=== PATIENT | male | born 1970 | race Caucasian/White ===

== ENCOUNTER 2021-07-19 16:07 | Emergency (ER) | payer BC, OTHER ==
--- NOTE | 2021-07-19 16:49 | EDM.PDOC ---
ED HPI GENERAL MEDICAL PROBLEM - General Chief Complaint: Respiratory Problem Stated Complaint: COVID +/WORSENING SYMPTOMS Time Seen by Provider: 07/19/21 16:18 Source of Information: Reports: Patient, Old Records (Pt's records from [facility]), RN Notes Reviewed History Limitations: Reports: No Limitations - History of Present Illness INITIAL COMMENTS - FREE TEXT/NARRATIVE: Patient is a 51-year-old male who presents to the ER for evaluation of his worsening COVID-19 symptoms. States that he has been sick with Covid for roughly 10 or 11 days. He went to the walk-in clinic yesterday, and was reevaluated, they did a chest x-ray and some basic labs, and sent him home with a pulse oximeter. Notes that he has been watching his oxygen saturations at home, and he states that he has seen numbers as low as 85 to 88% at rest. However these were fleeting. O2 sats at time of triage, throughout his stay here so far have been 92 to 93%. Patient notes that he is having some resolution of feeling like he can catch his breath at this time. He is complaining however of increased sputum production, of a green/orange-colored sputum. He was given an inhaler as well, but states he was not taught how to use this, so he is not sure if he was using it correctly. He does think it does help when he takes it. He has been in contact with a significant other in his life, that is requesting the patient be placed on azithromycin, dexamethasone, and possibly a nebulizer. Patient's chest x-ray done at the [place] walk-in clinic demonstrated patchy infiltrates, and they were concerned of a possible pneumonitis. Patient notes he does not have a primary care provider, he does have some issues with elevated blood pressures. Chest Pain Score (Numeric/FACES): 6 - Related Data Allergies Allergy/AdvReac Type Severity Reaction Status Date / Time No Known Allergies Allergy Verified 07/19/21 16:41 Home Meds: Home Meds Albuterol Sulfate [Albuterol Sulfate HFA] 2 puff INH ASDIRECTED 07/19/21 [History] Azithromycin 250 mg PO ASDIRECTED #6 tablet 07/19/21 [Rx] Benzonatate [Tessalon Perle] 100 mg PO ASDIRECTED 07/19/21 [History] Levothyroxine [Synthroid] 100 mcg PO DAILY 07/19/21 [History] Pantoprazole Sodium [Protonix] 40 mg PO DAILY 07/19/21 [History] dexAMETHasone [Decadron] 6 mg PO DAILY 10 Days #10 tablet 07/19/21 [Rx] lisinopriL [Lisinopril] 40 mg PO DAILY 07/19/21 [History] Past Medical History Cardiovascular History: Reports: Hypertension - Infectious Disease History Infectious Disease History: Reports: Novel Coronavirus (06/2021) ED ROS GENERAL - Review of Systems Review Of Systems: Comprehensive ROS is negative, except as noted in HPI. ED EXAM, GENERAL - Physical Exam Exam: See Below Exam Limited By: No Limitations General Appearance: Alert, WD/WN, No Apparent Distress Eye Exam: Bilateral Eye: EOMI, Normal Inspection, PERRL Respiratory/Chest: No Respiratory Distress, Lungs Clear, Normal Breath Sounds, No Accessory Muscle Use, Chest Non-Tender Cardiovascular: Normal Peripheral Pulses, Regular Rate, Rhythm, No Edema Peripheral Pulses: 2+: Radial (L), Radial (R) Extremities: Normal Inspection, Normal Capillary Refill Neurological: Alert, Oriented, Normal Cognition, No Motor/Sensory Deficits Psychiatric: Normal Affect, Normal Mood Skin Exam: Warm, Dry, Intact, Normal Color, No Rash Course - Vital Signs Last Recorded V/S: Last Vital Signs Temp 96.7 F L 07/19/21 16:34 Pulse 90 07/19/21 16:34 Resp BP 158/89 H 07/19/21 16:34 Pulse Ox 92 L 07/19/21 16:34 - Orders/Labs/Meds Labs: Laboratory Tests 07/19/21 07/19/21 Range/Units 16:52 16:52 WBC 5.32 (4.23-9.07) K/mm3 RBC 4.94 (4.63-6.08) M/mm3 Hgb 15.0 (13.7-17.5) gm/dl Hct 44.6 (40.1-51.0) % MCV 90.3 (79.0-92.2) fl MCH 30.4 (25.7-32.2) pg MCHC 33.6 (32.2-35.5) g/dl RDW Std Deviation 42.9 (35.1-43.9) fL Plt Count 163 (163-337) K/mm3 MPV 9.3 L (9.4-12.3) fl Neut % (Auto) 71.5 H (34.0-67.9) % Lymph % (Auto) 17.7 L (21.8-53.1) % [place] % (Auto) 10.2 (5.3-12.2) % Eos % (Auto) 0 L (0.8-7.0) Baso % (Auto) 0.4 (0.1-1.2) % Neut # (Auto) 3.81 (1.78-5.38) K/mm3 Lymph # (Auto) 0.94 L (1.32-3.57) K/mm3 [place] # (Auto) 0.54 (0.30-0.82) K/mm3 Eos # (Auto) 0.00 L (0.04-0.54) K/mm3 Baso # (Auto) 0.02 (0.01-0.08) K/mm3 Manual Slide Review Sodium 135 L (136-145) mEq/L Potassium 4.1 (3.5-5.1) mEq/L Chloride 100 (98-107) mEq/L Carbon Dioxide 27 (21-32) mEq/L Anion Gap 12.1 (5-15) BUN 17 (7-18) mg/dL Creatinine 1.1 (0.7-1.3) mg/dL Est Cr Clr Drug Dosing 89.16 mL/min Estimated GFR (MDRD) > 60 (>60) mL/min BUN/Creatinine Ratio 15.5 (14-18) Glucose 125 H (70-99) mg/dL Calcium 7.9 L (8.5-10.1) mg/dL Total Bilirubin 0.9 (0.2-1.0) mg/dL AST 40 H (15-37) U/L ALT 48 (16-63) U/L Alkaline Phosphatase 53 (46-116) U/L C-Reactive Protein 10.2 H* (<1.0) mg/dL Total Protein 6.9 (6.4-8.2) g/dl Albumin 3.1 L (3.4-5.0) g/dl Globulin 3.8 gm/dL Albumin/Globulin Ratio 0.8 L (1-2) - Re-Assessments/Exams Free Text/Narrative Re-Assessment/Exam: 07/19/21 16:51 Patient presents to the ER for the ongoing COVID-19 symptoms, O2 sats have been okay while being in the ER, 90 to 93% with good plethysmography. For today's purposes we will repeat a chest x-ray, and some basic labs for ongoing management, we will have respiratory therapy come to teach the patient how to use an albuterol inhaler with a spacer to be given. Plan is to possibly send the patient home with a azithromycin, dexamethasone, for possiblesuperimposed infection over suspected Covid pneumonia, due to his change in color and sputum production. 07/19/21 17:44 Laboratory evaluation demonstrates no sign of acute changes. His CRP is el evated at 10.9, so the dexamethasone should help with this. We have been monitoring his O2 sats, and they have dipped to 88 or 89 at times, but then pop right back up to 93-94%. Departure - Departure Time of Disposition: 17:34 Disposition: Home, Self-Care 01 Condition: Good Clinical Impression: Pneumonia due to COVID-19 virus - Discharge Information *PRESCRIPTION DRUG MONITORING PROGRAM REVIEWED*: No *COPY OF PRESCRIPTION DRUG MONITORING REPORT IN PATIENT STU: No Prescriptions: Azithromycin 250 mg PO ASDIRECTED #6 tablet dexAMETHasone [Decadron] 6 mg PO DAILY 10 Days #10 tablet Instructions: COVID-19 Frequently Asked Questions, 10 Things You Can Do to Manage Your COVID-19 Symptoms at Home - [facility] (05/23/2020) Referrals: PCP,None [Primary Care Provider] - Forms: ED Department Discharge Care Plan Goals: You were seen in the ER today for ongoing and/or worsening respiratory symptoms. Your chest x-ray did show signs of Covid 19 pneumonia; which is a viral pneumonia, at this time. Your oxygen levels were acceptable at 92-93% on room air. Due to you reporting a change in sputum production, it is thought that there might be some overlying bacterial infection, you have been started on an antibiotic, azithromycin, please take as directed on the pack. You have also been started on oral dexamethasone for ongoing management. Please take as directed 1 tablet daily until gone. This medication was electronically sent to the [place] pharmacy located in the [facility] grocery store. Please try to increase your oral fluid intake, and eat multiple small meals throughout the day, to keep yourself healthy. You need to keep yourself nourished in order to fight off this disease. You can try a liquid diet like gatorade/powerade as well to get your electrolytes. You may take 500 mg Tylenol every hours 6 hours for pain/fever relief. Do not exceed 4000 mg Tylenol in a 24-hour time span. However, running a fever is your body's natural response to illness, and it allows the body to develop antibodies to disease, we are recommending trying to limit the use of Tylenol as much as possible to allow your body's natural immune response. You were given an inhaler from a different provider, and have also been provided a spacer, and have been shows how to use your inhaler with a spacer, please use this 2 puffs 4 times a day as needed for ongoing respiratory difficulty. Continue to monitor your oxygen levels at home, you should place the monitor on your finger, and sit in a calm, quiet position for a few minutes and then record the number that is on the screen. If this consistently below 90% on room air without movement, this would be cause for concern to come back to the hospital for further management of your COVID-19 disease. Please follow all guidance set forth from [facility], regarding isolation purposes for your disease process. Since your quarantine was technically over last night at midnight, I would recommend that you try to keep yourself in isolation until you're 24-hour fever free without any sort of Tylenol or ibuprofen. Sepsis Event Note (ED) - Focused Exam Vital Signs: Vital Signs Temp Pulse BP Pulse Ox 07/19/21 16:34 96.7 F L 90 158/89 H 92 L
--- NOTE | 2021-07-19 17:25 | CR ---
Chest: Frontal view of the chest was obtained. Comparison: No prior chest imaging is available. Heart size and mediastinum are normal. Patchy areas of increased density are seen along the periphery of both lungs. Bony structures are grossly intact. Impression: 1. Findings compatible with COVID pneumonia as described above. Diagnostic code #3
== END 2021-07-19 18:22 | disposition home or self-care (01) ==
LOC: JD.ED 16:07
DX: U07.1 COVID-19 (principal); J12.82 Pneumonia due to coronavirus disease 2019; I10 Essential (primary) hypertension; Z79.899 Other long term (current) drug therapy
CPT/HCPCS: 36415; 71045; 71045-26; 80053; 85025; 86140; 94640; 99283; 99284-25

== ENCOUNTER 2021-07-20 18:52 | Emergency (ER) | payer OTHER ==
[2021-07-20] MEDS ORDERED: Sodium Chloride 0.9% 10 ML Syringe FLUSH PRN (19:59)
--- NOTE | 2021-07-20 20:00 | EDM.PDOC ---
<RiversideMahi V - Last Filed: 07/20/21 22:39> ED HPI GENERAL MEDICAL PROBLEM - General Chief Complaint: Respiratory Problem Stated Complaint: COVID+ Time Seen by Provider: 07/20/21 19:38 Source of Information: Reports: Patient, Old Records, RN Notes Reviewed History Limitations: Reports: No Limitations - History of Present Illness INITIAL COMMENTS - FREE TEXT/NARRATIVE: Patient is a 51-year-old male who presents to the ER for his ongoing COVID-19 symptoms. Patient was evaluated in the ER by myself yesterday, and O2 sats were found to be within normal limits, he was sent home with a Z-Rito, for suspected overlying pneumonia due to his reported change in color of sputum. Dexamethasone for ongoing management of his COVID-19. He had a inhaler given to him from a previous provider, and states this has not been helping much. He has been checking his oxygen levels at home, and did note that his oxygen levels have been low today, around 85%. He states that they worsen with ambulation. He does have some dyspnea on exertion. He states that the fevers have stopped however. He was first diagnosed with Covid roughly 11 or 12 days now, and has been off quarantine, since yesterday at midnight. I did tell him however since he has still been feeling sick, and is coughing, that he should isolate until he is feeling better. Again patient returns to the ER, because he was monitoring his oxygen levels, and they have been in the 80s. - Related Data Allergies Allergy/AdvReac Type Severity Reaction Status Date / Time No Known Allergies Allergy Verified 07/19/21 16:41 Home Meds: Home Meds Albuterol Sulfate [Albuterol Sulfate HFA] 2 puff INH ASDIRECTED 07/19/21 [His tory] Azithromycin 250 mg PO ASDIRECTED #6 tablet 07/19/21 [Rx] Benzonatate [Tessalon Perle] 100 mg PO ASDIRECTED 07/19/21 [History] Levothyroxine [Synthroid] 100 mcg PO DAILY 07/19/21 [History] Pantoprazole Sodium [Protonix] 40 mg PO DAILY 07/19/21 [History] dexAMETHasone [Decadron] 6 mg PO DAILY 10 Days #10 tablet 07/19/21 [Rx] lisinopriL [Lisinopril] 40 mg PO DAILY 07/19/21 [History] Past Medical History Cardiovascular History: Reports: Hypertension Psychiatric History: Reports: Anxiety Endocrine/Metabolic History: Reports: Hypothyroidism - Infectious Disease History Infectious Disease History: Reports: Chicken Pox, Novel Coronavirus Social & Family History - Caffeine Use Caffeine Use: Reports: Coffee, Soda ED ROS GENERAL - Review of Systems Review Of Systems: Comprehensive ROS is negative, except as noted in HPI. ED EXAM, GENERAL - Physical Exam Exam: See Below Exam Limited By: No Limitations General Appearance: Alert, WD/WN, No Apparent Distress Respiratory/Chest: Respiratory Distress (very mild, pt is somewhat breathless at rest and with minimal exertion), Decreased Breath Sounds (decreased bilaterally) Cardiovascular: Normal Peripheral Pulses, Regular Rate, Rhythm, No Edema Extremities: Normal Inspection, Normal Capillary Refill Neurological: Alert, Oriented, Normal Cognition, No Motor/Sensory Deficits Psychiatric: Normal Affect, Normal Mood Skin Exam: Warm, Dry, Intact, Normal Color, No Rash Course - Re-Assessments/Exams Free Text/Narrative Re-Assessment/Exam: 07/20/21 19:59 Patient presents to the ER for his low O2 sats, with COVID-19. For all intents and purposes the patient has failed outpatient treatment on multiple levels. He will likely necessitate hospitalization, will repeat a chest x-ray, and some basic labs for evaluation. 07/20/21 20:54 Patient's chest x-ray has been performed, and again demonstrates patchy infiltrates consistent with Covid pneumonia. This was reviewed by myself and Dr. Menendez. Labs have started to result, CBC is fairly unremarkable, D-dimer is elevated at 0.63, metabolic panel essentially unimpressive but his CRP is still elevated at 6.2, which is better from the level of 10 where it was yesterday. Also chest x-ray does not seem to be worsened from yesterday's studies as well. [facility] in [place] has been on diversion all day, I did try to call [facility] in [place] for placement, they state they are also on diversion. At this time I did call the [facility] transfer center, for possible hospital admission for MedSurg management for hypoxia with COVID-19. 07/20/21 22:06 The [facility] transfer center did call back, they have failed to find a bed in the [facility] for management. They will pickup driver the search tomorrow morning, unless we would happen to have a discharge and we can admit the patient here. I did call Dr. Hunter, our hospitalist for general questions, he states that if the patient was an inpatient he would not start him on remdesivir, or convalescent plasma, and he would stay the course with oxygen and dexamethasone as well. 07/20/21 22:39 The patient will likely have to stay with us overnight, and we will try to again restart the search for beds in the morning, hoping at some point one of our hospital beds may open otherwise we will try to get him transferred for different facility, if efforts seem to be futile for finding bed placement, we may have to think about the possibility of sending the patient home with oxygen, and continuing the dexamethasone orally for a little while. I will discuss this with the patient, and case will be discussed with Dr. Hebert, as he will be the physician on in the ER all night. Departure - Departure Disposition: Home, Self-Care 01 Clinical Impression: COVID-19 - Discharge Information Referrals: PCP,None [Primary Care Provider] - Forms: ED Department Discharge Additional Instructions: You were seen in the emergency room for worsening symptoms, including shortness of breath, in the setting of being diagnosed with COVID-19 12 or 13 days ago. Your oxygen saturation was found to be low at 88% on room air in the ER. It improved to 94% on 3 L of oxygen per nasal cannula. Work-up in the ER included several blood tests and a chest x-ray. Your chest x-ray found infiltrates in both of your lungs, consistent with COVID pneumonia. Unfortunately, it is too late in the course of your COVID-19 to treat you with antiviral medications or convalescent plasma. Continue to take your previously prescribed dexamethasone, 6 mg every morning, as prescribed. Arrangements have been made for you to receive supplemental oxygen at home. We recommend that you check your oxygen level on your home pulse oximeter several times a day. Increase or decrease your oxygen delivery so that your oxygen level remains between 94 and 96%. If you require 6 L of oxygen or more in order to maintain an oxygen saturation between 94 and 96%, you need to return to the ER for reevaluation. <Joao Hebert - Last Filed: 07/21/21 07:33> Course - Vital Signs Last Recorded V/S: Last Vital Signs Temp 36.2 C 07/20/21 19:47 Pulse 74 07/21/21 06:45 Resp 20 07/21/21 06:45 BP 134/74 07/21/21 06:45 Pulse Ox 90 L 07/21/21 06:45 - Orders/Labs/Meds Orders: Active Orders 24 hr Category Date Time Status Peripheral IV Care [RC] . DIRECTED Care 07/20/21 19:59 Active Chest 1V Frontal [CR] Stat Exams 07/20/21 19:55 Taken Sodium Chloride 0.9% [Saline Flush] Med 07/20/21 19:59 Active 10 ml FLUSH ASDIRECTED PRN Peripheral IV Insertion Adult [OM.PC] Routine Oth 07/20/21 19:59 Ordered Medication Orders Sodium Chloride (Sodium Chloride 0.9% 10 Ml Syringe) 10 ml FLUSH ASDIRECTED PRN PRN Reason: Keep Vein Open Last Admin: 07/20/21 20:17 Dose: 10 ml Documented by: ANSLEY Labs: Laboratory Tests 07/20/21 07/20/21 07/20/21 Range/Units 20:12 20:12 20:12 WBC 7.12 (4.23-9.07) K/mm3 RBC 5.23 (4.63-6.08) M/mm3 Hgb 16.0 (13.7-17.5) gm/dl Hct 46.6 (40.1-51.0) % MCV 89.1 (79.0-92.2) fl MCH 30.6 (25.7-32.2) pg MCHC 34.3 (32.2-35.5) g/dl RDW Std Deviation 42.9 (35.1-43.9) fL Plt Count 233 (163-337) K/mm3 MPV 8.9 L (9.4-12.3) fl Neut % (Auto) 75.8 H (34.0-67.9) % Lymph % (Auto) 12.1 L (21.8-53.1) % [place] % (Auto) 11.5 (5.3-12.2) % Eos % (Auto) 0 L (0.8-7.0) Baso % (Auto) 0.3 (0.1-1.2) % Neut # (Auto) 5.40 H (1.78-5.38) K/mm3 Lymph # (Auto) 0.86 L (1.32-3.57) K/mm3 [place] # (Auto) 0.82 (0.30-0.82) K/mm3 Eos # (Auto) 0.00 L (0.04-0.54) K/mm3 Baso # (Auto) 0.02 (0.01-0.08) K/mm3 Manual Slide Review D-Dimer, Quantitative 0.63 H (0.19-0.50) mg/L Sodium 136 (136-145) mEq/L Potassium 4.6 (3.5-5.1) mEq/L Chloride 100 (98-107) mEq/L Carbon Dioxide 26 (21-32) mEq/L Anion Gap 14.6 (5-15) BUN 18 (7-18) mg/dL Creatinine 1.3 (0.7-1.3) mg/dL Est Cr Clr Drug Dosing 79.92 mL/min Estimated GFR (MDRD) 59 (>60) mL/min BUN/Creatinine Ratio 13.8 L (14-18) Glucose 149 H (70-99) mg/dL Calcium 8.5 (8.5-10.1) mg/dL Total Bilirubin 1.0 (0.2-1.0) mg/dL AST 36 (15-37) U/L ALT 41 (16-63) U/L Alkaline Phosphatase 59 (46-116) U/L C-Reactive Protein 6.2 H* (<1.0) mg/dL Total Protein 7.6 (6.4-8.2) g/dl Albumin 3.4 (3.4-5.0) g/dl Globulin 4.2 gm/dL Albumin/Globulin Ratio 0.8 L (1-2) Meds: Medications Generic Name Dose Route Start Last Admin Trade Name Freq PRN Reason Stop Dose Admin Sodium Chloride 10 ml 07/20/21 19:59 07/20/21 20:17 Sodium Chloride 0.9% 10 Ml Syringe FLUSH 10 ml ASDIRECTED PRN Administration Keep Vein Open Discontinued Medications Generic Name Dose Route Start Last Admin Trade Name Freq PRN Reason Stop Dose Admin Acetaminophen 650 mg 07/21/21 02:15 07/21/21 02:31 Acetaminophen 325 Mg Tab PO 07/21/21 02:16 650 mg NOW ONE Administration Benzonatate 100 mg 07/21/21 02:15 07/21/21 02:31 Benzonatate 100 Mg Cap PO 07/21/21 02:16 100 mg ONETIME ONE Administration Benzonatate 100 mg 07/21/21 06:14 07/21/21 06:47 Benzonatate 100 Mg Cap PO 07/21/21 06:15 100 mg ONETIME ONE Administration - Re-Assessments/Exams Free Text/Narrative Re-Assessment/Exam: 07/21/21 07:14 Since the patient's only requirements at this time are supplemental oxygen and dexamethasone, we are arranging for home oxygen, 3 L per nasal cannula, titratable to an SpO2 94-96% per the patient's own pulse oximeter. He already had a prescription for dexamethasone that he is taking QAM - he has not yet taken this morning's dose, but can as soon as he gets home. If his oxygen requirements increase to 6 L per nasal cannula, he will need to return to the ED, because at that time he would require hospitalization. All of the above was discussed with the patient, who is agreeable. Departure - Departure Time of Disposition: 07:25 Condition: Good - Discharge Information *PRESCRIPTION DRUG MONITORING PROGRAM REVIEWED*: Not Applicable *COPY OF PRESCRIPTION DRUG MONITORING REPORT IN PATIENT STU: Not Applicable Sepsis Event Note (ED) - Focused Exam Vital Signs: Vital Signs Temp Pulse Resp BP Pulse Ox 07/21/21 06:45 74 20 134/74 90 L 07/20/21 20:00 92 L 07/20/21 19:47 36.2 C 86 20 161/81 H 88 L
[2021-07-21] MEDS ORDERED: Acetaminophen 325 MG Tab PO ONE (02:15)
[2021-07-21] MEDS ORDERED: Benzonatate 100 MG Cap PO ONE ×2 (02:15→06:14)
--- NOTE | 2021-07-21 09:22 | CR ---
Chest: Portable view of the chest was obtained. Comparison: Prior chest x-ray of 07/19/21. Patchy areas of increased density are seen on both sides of the chest compatible with COVID pneumonia. Findings are minimally improved on the left side and stable on the right side. No new parenchymal densities are seen. Heart size and mediastinum are normal. No acute osseous abnormality is appreciated. Impression: 1. Patchy densities on both sides of the chest, slightly improved on the left side. Diagnostic code #3
== END 2021-07-21 08:50 | disposition home or self-care (01) ==
LOC: JD.ED 18:52
DX: U07.1 COVID-19 (principal); I10 Essential (primary) hypertension; E03.9 Hypothyroidism, unspecified; Z79.899 Other long term (current) drug therapy
CPT/HCPCS: 36415; 71045; 80053; 85025; 85379; 86140; 99284; A9270